=== PATIENT | female | born 1945 | race Caucasian/White ===

== ENCOUNTER 2017-07-22 19:47 | Inpatient (IN) | payer MEDICARE, BC ==
[~2017-07-22] VITALS: Ht 162.6 cm; Wt 60.7 kg
[2017-07-22] MEDS ORDERED: ONDANSETRON 2MG/ML, 2ML ONE (20:06)
[2017-07-22] MEDS ORDERED: PANTOPRAZOLE 80 MG in SODIUM CHLORIDE 0.9% 100 ML IV SCH (20:14)
[2017-07-22] MEDS ORDERED: PANTOPRAZOLE 80 MG in SODIUM CHLORIDE 0.9% 50 ML IVPB ONE (20:14)
[2017-07-22] MEDS ORDERED: METOCLOPRAMIDE 5 MG/ML, 2ML IVPush ONE (20:30)
[2017-07-22] MEDS ORDERED: OCTREOTIDE 100MCG/ML, 1ML (0.1MG/ML) IV ONE (20:30)
[2017-07-22] MEDS ORDERED: ONDANSETRON 2MG/ML, 2ML IVPush ONE (20:30)
[2017-07-22] MEDS ORDERED: METOCLOPRAMIDE 5 MG/ML, 2ML ONE ×2 (20:33→21:57)
[2017-07-22 20:44] LABS: INTERNATIONAL NORMALIZED RATIO 1.44 (0.93-1.1); MEAN CORPUSCULAR HEMOGLOBIN 36.3 pg (27.0-34.8); MEAN CORPUSCULAR HGB CONC 32.4 g/dL (32.4-35.8); MEAN CORPUSCULAR VOLUME 112.1 fL (80-100); MEAN PLATELET VOLUME 8.3 fL (7.4-10.4); PLATELET COUNT 229 x10^3/uL (130-400); PROTHROMBIN TIME 14.7 Seconds (9.6-11.5); RED BLOOD COUNT 1.78 x10^6/uL (3.82-5.3)
[2017-07-22 20:46] LABS: ALANINE AMINOTRANSFERASE 23 U/L (12-78); ALBUMIN 1.9 g/dL (3.4-5.0); ANION GAP 14 mmol/L (5-15); CALCIUM 7.7 mg/dL (8.5-10.1); CHLORIDE 112 mmol/L (98-107); CREATININE 0.75 mg/dL (0.55-1.02)
[2017-07-22 20:48] LABS: ALKALINE PHOSPHATASE 124 U/L (45-117); BILIRUBIN,TOTAL 1.4 mg/dL (0.2-1.0); TOTAL PROTEIN 6.1 g/dL (6.4-8.2)
[2017-07-22] MEDS ORDERED: OCTREOTIDE 500 MCG in SODIUM CHLORIDE 0.9% 249 ML IV PRN (20:54)
[2017-07-22] MEDS ORDERED: PLEASE ENTER HEIGHT AND WEIGHT MC SCH (21:00)
[2017-07-22 21:10] LABS: <PLATELET ESTIMATE> ADEQUATE; <PLT MORPHOLOGY> NORMAL PLT MORPH; ANISOCYTOSIS 2+; BASOPHILS # (AUTO) 0.05 x10^3/uL (0-0.1); BASOPHILS % (AUTO) 0 % (0-1); EOSINOPHILS # (AUTO) 0.01 x10^3/uL (0-0.4); EOSINOPHILS % (AUTO) 0 % (1-7); LYMPHOCYTES # (AUTO) 2.14 x10^3/uL (1-3.4); LYMPHOCYTES % (AUTO) 19 % (22-44); MD MORPH REVIEW ONLY; MONOCYTES # (AUTO) 1.01 x10^3/uL (0.2-0.8); MONOCYTES % (AUTO) 9 % (2-9); NEUTROPHILS % (AUTO) 71 % (42-75); POLYCHROMASIA 1+
[2017-07-22] MEDS ORDERED: FURO40TA6 PO (21:18)
[2017-07-22] MEDS ORDERED: AZAT50TA9 PO (21:18)
[2017-07-22] MEDS ORDERED: POTA20TA89 PO (21:19)
[2017-07-22] MEDS ORDERED: ONDA4TAB10 PO (21:19)
[2017-07-22] MEDS ORDERED: PRED5TAB PO (21:20)
[2017-07-22] MEDS ORDERED: CEFTRIAXONE PMX 1GM/50ML 50 ML IV ONE (21:30)
[2017-07-22] MEDS ORDERED: CEFTRIAXONE PMX 1GM/50ML 50 ML ONE (21:57)
[2017-07-22] MEDS ORDERED: OCTREOTIDE 100MCG/ML, 1ML (0.1MG/ML) ONE (21:57)
[2017-07-22 22:13] VITALS: BP 117/48
[2017-07-22 22:23] VITALS: BP 111/61
[2017-07-22] MEDS ORDERED: METOCLOPRAMIDE 5 MG/ML, 2ML IVPush PRN (22:30)
[2017-07-22] MEDS ORDERED: LORazepam 1MG TABLET PO PRN (22:30)
[2017-07-22] MEDS ORDERED: TEMAZEPAM 15 MG CAPSULE PO PRN (22:30)
[2017-07-22] MEDS ORDERED: ONDANSETRON 2MG/ML, 2ML IVPush PRN (22:30)
[2017-07-22] MEDS: OCTREOTIDE 500 MCG in SODIUM CHLORIDE 0.9% 249 ML IV SCH (22:30)
[2017-07-22] MEDS ORDERED: morphine SULFATE 10 MG/ML, 1ML IVPush PRN (22:30)
[2017-07-22] MEDS: PANTOPRAZOLE 80 MG in SODIUM CHLORIDE 0.9% 100 ML IV SCH (22:30)
[2017-07-22] MEDS ORDERED: LABETALOL 5MG/ML, 20ML IVPush PRN (22:30)
[2017-07-22] MEDS: CEFTRIAXONE PMX 1GM/50ML 50 ML IV SCH (22:30)
[2017-07-22] MEDS ORDERED: ONDANSETRON ODT 4 MG PO PRN (22:30)
[2017-07-22 23:21] VITALS: BP 121/60
[2017-07-23] VITALS (7 sets, daily range): BP systolic 102–137; BP diastolic 58–69
[2017-07-23] MEDS ORDERED: PHYTONADIONE 10 MG/ML, 1ML SQ ONE
[2017-07-23] MEDS: MVI ADULT 10 ML, FOLIC ACID 1 MG in D5%-0.9% NACL 1,000 ML IV SCH ×2 (00:22→00:33)
[2017-07-23] MEDS: THIAMINE MC SCH ×2 (00:30→08:30)
[2017-07-23 05:24] LABS: MEAN CORPUSCULAR HEMOGLOBIN 33.5 pg (27.0-34.8); MEAN CORPUSCULAR HGB CONC 33.9 g/dL (32.4-35.8); MEAN CORPUSCULAR VOLUME 98.8 fL (80-100); MEAN PLATELET VOLUME 8.3 fL (7.4-10.4); PLATELET COUNT 140 x10^3/uL (130-400); RED BLOOD COUNT 2.54 x10^6/uL (3.82-5.3); RED CELL DISTRIBUTION WIDTH 22.2 % (9.6-15.2)
[2017-07-23 05:28] LABS: CHLORIDE 116 mmol/L (98-107)
[2017-07-23 05:41] LABS: ALANINE AMINOTRANSFERASE 18 U/L (12-78); ALBUMIN 1.7 g/dL (3.4-5.0); ALKALINE PHOSPHATASE 97 U/L (45-117); ANION GAP 8 mmol/L (5-15); BILIRUBIN,TOTAL 1.3 mg/dL (0.2-1.0); CALCIUM 7.2 mg/dL (8.5-10.1); CREATININE 0.67 mg/dL (0.55-1.02); TOTAL PROTEIN 5.2 g/dL (6.4-8.2)
[2017-07-23 06:04] LABS: MD YES
[2017-07-23 06:24] LABS: EOS% (MANUAL) 1 % (1-7); LYMPH#(MANUAL) 3.52 x10^3/uL (1-3.4); LYMPHS% (MANUAL) 37 % (22-44); MONOS#(MANUAL) 0.57 x10^3/uL (0.3-2.7); MONOS% (MANUAL) 6 % (2-9); SEG#(MANUAL) 5.32 x10^3/uL (1.8-6.8); SEGS% (MANUAL) 56 % (42-75)
[2017-07-23 06:26] LABS: <PLATELET ESTIMATE> ADEQUATE; <PLT MORPHOLOGY> NORMAL PLT MORPH; ANISOCYTOSIS 2+; POLYCHROMASIA 1+
[2017-07-23] MEDS: PANTOPRAZOLE 80 MG in SODIUM CHLORIDE 0.9% 100 ML IV SCH (07:45)
[2017-07-23] MEDS: OCTREOTIDE 500 MCG in SODIUM CHLORIDE 0.9% 249 ML IV SCH (07:48)
[2017-07-23] MEDS ORDERED: FENTANYL PF 100 MCG/2ML ONE ×2 (09:14)
[2017-07-23] MEDS ORDERED: MIDAZOLAM 1 MG/ML, 2ML ONE (09:15)
[2017-07-23] MEDS: PHYTONADIONE 10 MG/ML, 1ML SQ SCH (10:25)
[2017-07-23] MEDS: D5%-0.45% NACL 1,000 ML IV SCH ×2 (11:03→23:54)
[2017-07-23] MEDS ORDERED: PANTOPRAZOLE 80 MG in SODIUM CHLORIDE 0.9% 100 ML IV SCH (11:39)
[2017-07-23] MEDS: THIAMINE 100MG TABLET PO SCH (13:33)
[2017-07-23] MEDS: PANTOPROZOLE 40MG TABLET PO SCH (21:58)
[2017-07-23] MEDS: CEFTRIAXONE PMX 1GM/50ML 50 ML IV SCH (21:58)
[2017-07-24] MEDS: MVI ADULT 10 ML, FOLIC ACID 1 MG in D5%-0.9% NACL 1,000 ML IV SCH (01:50)
[2017-07-24 03:38] VITALS: BP 137/65
[2017-07-24 07:47] VITALS: BP 118/77
[2017-07-24] MEDS: THIAMINE 100MG TABLET PO SCH (08:39)
[2017-07-24] MEDS: PANTOPROZOLE 40MG TABLET PO SCH ×2 (08:39→17:33)
[2017-07-24] MEDS: PHYTONADIONE 10 MG/ML, 1ML SQ SCH (08:39)
[2017-07-24 13:05] VITALS: BP 126/81
[2017-07-24] MEDS: D5%-0.45% NACL 1,000 ML IV SCH (13:51)
[2017-07-24] MEDS ORDERED: PANT40TA5 PO (17:11)
== END 2017-07-24 17:55 | disposition home or self-care (01) | DRG 380 ==
LOC: ED 21:15 → EDIP 21:16 → CCU 23:56 → 4EST 07-23 14:15
PROVIDERS: ADMIT Internal Medicine; ATTEND Internal Medicine
PROC: 30233N1 Transfusion of Nonautologous Red Blood Cells into Peripheral Vein, Percutaneous Approach (ICD-10-PCS; principal; 2017-07-22)
PROC: 0DJ08ZZ Inspection of Upper Intestinal Tract, Via Natural or Artificial Opening Endoscopic (ICD-10-PCS; 2017-07-22)
DX: K22.11 Ulcer of esophagus with bleeding (principal); E43 Unspecified severe protein-calorie malnutrition; D68.4 Acquired coagulation factor deficiency; D62 Acute posthemorrhagic anemia; K70.30 Alcoholic cirrhosis of liver without ascites; E86.0 Dehydration; F10.21 Alcohol dependence, in remission; K21.9 Gastro-esophageal reflux disease without esophagitis; K44.9 Diaphragmatic hernia without obstruction or gangrene; K59.00 Constipation, unspecified; Z87.19 Personal history of other diseases of the digestive system; Z88.1 Allergy status to other antibiotic agents; Z68.23 Body mass index [BMI] 23.0-23.9, adult
CPT/HCPCS: 36415; 36430; 80053; 80307; 82607; 82728; 83036; 83540; 83550; 83690; 83735; 84100; 85014; 85018; 85025; 85610; 85730; 86850; 86900; 86923; 87081; 96365; 96366; 96367; 96368; 96375; 99152; 99153; J0696; J2250; J2354; J2405; J3010; J3430; J7042; C9113; J2270; J2765; J7050; P9016